=== PATIENT | female | born 1965 | race Caucasian/White ===

== ENCOUNTER 2017-06-02 09:53 | Emergency (ER) | payer SELFPAY ==
[~2017-06-02] VITALS: Ht 165.1 cm; Wt 73.0 kg
[2017-06-02 10:14] VITALS: BP 124/83
== END 2017-06-02 22:08 | disposition left against medical advice (07) ==
LOC: ER 10:10
DX: R07.9 Chest pain, unspecified (principal); Z53.21 Procedure and treatment not carried out due to patient leaving prior to being seen by health care provider
CPT/HCPCS: 93005